=== PATIENT | male | born 1985 | race Caucasian/White ===

== ENCOUNTER 2019-04-21 15:26 | Emergency (ER) | payer OTHER ==
[~2019-04-21] VITALS: Ht 157.5 cm; Wt 68.0 kg
[2019-04-21 15:30] VITALS: BP 135/92
[2019-04-21] MEDS ORDERED: AUGMENTIN 500-1 EACH PO (15:49)
[2019-04-21] MEDS ORDERED: PREDNISONE 20 M20 MG PO (15:49)
== END 2019-04-21 16:00 | disposition home or self-care (01) ==
LOC: M.ERS 15:26
DX: H69.81 Other specified disorders of Eustachian tube, right ear (principal); J30.2 Other seasonal allergic rhinitis; H72.91 Unspecified perforation of tympanic membrane, right ear; M06.9 Rheumatoid arthritis, unspecified